=== PATIENT | male | born 1960 ===

== ENCOUNTER 2022-06-21 06:15 | Day surgery (SDC) | payer OTHER ==
[~2022-06-21 06:15] MED LIST: COZAAR25 MG PO; GABAPENTIN600 MG PO; METFORMIN HCL500 M3 PO; PLETAL PO; PROTONIX40 MG PO
== END 2022-06-22 08:45 | disposition home or self-care (01) ==
LOC: CIR.AMB 06:15
PROVIDERS: ATTEND Orthopaedic Surgery
DX: M75.121 Complete rotator cuff tear or rupture of right shoulder, not specified as traumatic (principal); M75.21 Bicipital tendinitis, right shoulder; Z91.041 Radiographic dye allergy status; Z20.822 Contact with and (suspected) exposure to COVID-19; I10 Essential (primary) hypertension; E11.9 Type 2 diabetes mellitus without complications; Z87.891 Personal history of nicotine dependence